=== PATIENT | male | born 1975 | race Caucasian/White ===

== ENCOUNTER 2018-11-05 07:27 | Emergency (ER) | payer SELFPAY ==
[2018-11-05] MEDS: Etomidate 20 MG/10 ML Vial IV (07:27)
[2018-11-05 07:28] VITALS: BP 168/120; PULSE 145; RESP 20; O2SAT 100; BMI 26.5
[2018-11-05] MEDS: Rocuronium Bromide 50 MG/5 ML Vial IV (07:28)
--- NOTE | 2018-11-05 07:31 | RAD_ITS ---
STUDY: X-RAY CHEST REASON FOR EXAM: Male, 43 years old. Patient was found unresponsive this morning. TECHNIQUE: Single AP portable view of the chest. COMPARISON: Prior comparison studies are not available for review at this time. FINDINGS: Tip of the endotracheal tube is at the aortic arch. Enteric tube is present with the distal end within the gastric fundus. The lungs are hyperexpanded. There is no obvious airspace consolidation, pleural effusions or pneumothorax. There is no demonstrated pleural abnormality. Normal size heart. Normal mediastinum and angle. There is prominence of the pulmonary hilar arteries without peripheral pulmonary vascular congestion. There is atherosclerotic calcification of the aortic arch with tortuosity. Normal visualized thoracic spine. Normal visualized ribs, clavicles, and shoulders. There is no demonstrated abnormality of the visualized soft tissue structures of the upper abdomen. RAD/Chest 1 View (Portable) IMPRESSION: No radiographic evidence of acute cardiopulmonary disease. Electronically Signed: Jana Kim MD at 8:41 EST , Service support ,
--- NOTE | 2018-11-05 07:31 | EKG12_ITS ---
Test Reason : UNRESPONSIVE Blood Pressure : / mmHG Vent. Rate : 132 BPM Atrial Rate : 576 BPM P-R Int : 000 ms QRS Dur : 092 ms QT Int : 400 ms P-R-T Axes : 076 063 083 degrees QTc Int : [address] & T wave abnormality, consider inferior ischemia ST & T wave abnormality, consider anterolateral ischemia Abnormal ECG Confirmed by JUAN MIGUEL PAUL, UZMA ([id number]), pictures editor JOSEP HOLDEN ([id number]) on 11/07/2018 8:48:35 AM Referred By: MAX Confirmed By:UZMA BULLARD MD
--- NOTE | 2018-11-05 07:31 | CT_ITS ---
STUDY: CT BRAIN WITHOUT CONTRAST REASON FOR EXAM: Male, 43 years old. Unresponsive patient RADIATION DOSAGE (If Supplied By Facility): CTDIvol = ( 44.99 ) mGy, DLP = ( 779.24 ) mGycm TECHNIQUE: Transaxial CT imaging of the brain was performed without administration of intravenous contrast material. Multiplanar reformations are submitted for interpretation. Individualized dose optimization techniques were used for this CT. COMPARISON: None. FINDINGS: Normal soft tissue structures. Normal calvarium. There is diffuse cerebral edema with effacement of cortical sulci. There is a severe right to left transfalcine there is also crowding of the basilar cisterns with displacement of the cerebellar tonsils below the foramen magnum consistent with severe transtentorial shift by approximately 11.5 mm. There is dilatation of the lateral ventricles. There is effacement of fourth ventricle. There is a large hematoma in the region of the right basal ganglia extending into the adjacent white matter measuring approximately 7.0 x 3.5 x 4.8 cm in size. There is associated vasogenic edema and intraventricular hemorrhage There are tiny areas of increased attenuation in the brainstem suggesting possible Duret hemorrhage. Normal cerebellum. There are large mucus retention cysts within the maxillary sinuses. CT/Brain/Head without Contrast IMPRESSION: 1. 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 2. Severe right to left subfalcine shift, and transtentorial shift. 3. Diffuse cerebral edema. 4. Probable Duret hemorrhages. N.B. : The above information has been verbally conveyed by Jana Kim MD to Marcus Leavitt MD, on 11/05/2018 07:58:00 (ET). Electronically Signed: Jana Kim MD at 8:05 EST , Service support ,
--- NOTE | 2018-11-05 07:33 | CT_ITS ---
STUDY: CT ABDOMEN AND PELVIS WITH CONTRAST REASON FOR EXAM: Male, 43 years old. Patient was found unresponsive after falling yesterday. RADIATION DOSAGE (If Supplied By Facility): CTDIvol = ( 13.45 ) mGy, DLP = ( 891.04 ) mGycm TECHNIQUE: Transaxial images were obtained from the dome of the diaphragm to the symphysis pubis without oral contrast. 100 ml of Isovue 300 contrast was administered. Sagittal and coronal images were reconstructed. Individualized dose optimization techniques were used for this CT. COMPARISON: None. FINDINGS: There is bilateral basilar airspace consolidation and/or atelectasis. The visualized portions of the heart are within normal limits. Normal liver. Normal gallbladder and extrahepatic biliary system. Normal spleen. Normal pancreas. Normal bilateral adrenal glands. There is mild prominence of bilateral renal collecting systems, without evidence for radiopaque ureteral calculus. The renal parenchyma has a normal appearance. Enteric tube is visible within the stomach. There is a large amount of bowel gas within the small and large bowel suggesting an ileus. There is no definite evidence for dilated bowel, ascites or pneumoperitoneum. Normal colon. The appendix is visualized and appears normal. Normal abdominal aorta. Normal inferior vena cava. Normal retroperitoneum. Knutson catheter is visible in the urinary bladder. Normal visualized prostate gland. Normal abdominal wall. Normal osseous structures. CT/Abdomen/Pelvis W IV Cont ONLY IMPRESSION: 1. Bilateral basilar airspace consolidation and/or atelectasis. 2. Probable ileus. 3. Mild dilatation of the renal collecting systems possibly reflexive without evidence for ureteral calculi. Electronically Signed: Jana Kim MD at 8:23 EST , Service support ,
--- NOTE | 2018-11-05 07:33 | CT_ITS ---
STUDY: CT CERVICAL SPINE WITHOUT CONTRAST REASON FOR EXAM: Male, 43 years old. Neck pain. Patient was found unresponsive this morning. RADIATION DOSAGE (If Supplied By Facility): CTDIvol = ( 24.94 ) mGy, DLP = ( 502.90 ) mGycm TECHNIQUE: High resolution transaxial imaging was performed without contrast material. Sagittal and coronal images were reconstructed. Individualized dose optimization techniques were used for this CT. COMPARISON: Prior comparison studies are not available for review at this time. FINDINGS: Normal craniovertebral junction. Normal anterior atlantoaxial articulation. Normal odontoid process. Normal cervical lordosis. Normal vertebral bodies and posterior osseous elements. C2-3: Normal endplates. Normal disc height and morphology. Normal central canal and intervertebral neuroforamina. C3-4: Normal endplates. Normal disc height and morphology. Normal central canal and intervertebral neuroforamina. C4-5: Normal endplates. Normal disc height and morphology. Normal central canal and intervertebral neuroforamina. C5-6: Normal endplates. Normal disc height and morphology. Normal central canal and intervertebral neuroforamina. C6-7: Normal endplates. Normal disc height and morphology. Normal central canal and intervertebral neuroforamina. C7-T1: Normal endplates. Normal disc height and morphology. Normal central canal and intervertebral neuroforamina. The patient is intubated. Enteric tube is present. Lung apices appear to be clear. Intraventricular hemorrhage is visible in the fourth ventricle. CT/Spine Cervical without Contras IMPRESSION: No CT evidence of acute compression or displaced fracture of cervical spine. Electronically Signed: Jana Kim MD at 8:11 EST , Service support ,
[2018-11-05 07:50] VITALS: RESP 16
[2018-11-05] MEDS: Diphth,Pertuss(Acell),Tet Vac 0.5 ML Vial IM (07:54)
[2018-11-05 08:01] LABS: Absolute Lymphocyte Count 0.61 X10^3/ul (0.83-4.51); Basophil# 0.03 X10^3/uL; Basophil% 0.2 % (0-1); Eosinophil# 0.05 X10^3/uL; Eosinophils% 0.3 % (0-5); Hematocrit 41.9 % (40-54); Hemoglobin 13.8 g/dl (13.0-16.5); Lymphocyte # 0.61 X10^3/ul (4.0); Lymphocyte % 3.9 % (19-41); Mean Corp Hgb Conc 32.9 g/gl (32-36); Mean Corpuscular Hgb 27.9 pg (27.0-32.0); Mean Corpuscular Volume 84.6 fL (80-94); Mean Platelet Vol. 10.7 fl (6.2-12.0); Monocyte# 0.79 X10^3/uL; Monocyte% 5.1 % (0-10); Neutrophil # 14.04 X10^3/uL (2.7-7.7); Neutrophil % 90.3 % (47-70); Platelet Count 174 K/mm3 (150-450); RBC Distribution Width SD 39.8 fl (35.1-43.9); Red Blood Count 4.95 M/mm3 (4.6-6.2); White Blood Count 15.6 K/mm3 (4.4-11.0)
[2018-11-05 08:03] LABS: POSITIVE COUNT NO; POSITIVE DIFFERENTIAL NO; POSITIVE MORPHOLOGY NO
--- NOTE | 2018-11-05 08:04 | ED.VISSUMM ---
- ER Visit Summary Date of Service: 11/05/18 Chief Complaint: Unresponsive History of Present Illness: The patient is a 43 M who was brought by EMS unresponsive. He was being bagged. Initial informant family. He apparently fell last evening at 2230. Per paramedics the description was as if someone dropped a brick. Girlfriend arrived later and I was informed at 0100 that he was doing well. No other history is available. Per paramedics she is on 2 antihypertensive medication. Apparently there is history of potential drug use. Physical Examination: Initial blood pressure 179 129 heart rate 159 patient is being bagged. Pupils are 4-5 mm nonreactive. There is no hemotympanum. There is evidence of facial trauma. Trach is midline. He was placed in a c-collar. Breath sounds noted with assisted ventilation. Heart is rapid and regular. Abdomen reveals contusion to the left side. Pelvis is apparently stable. He withdraws to noxious stimuli. GCS is 6. Test Results: CT of the head reveals a large right basal ganglion hemorrhage with blood into the ventricle significant shift and there is evidence of a tentorial subdural as well. CT of the neck reveals no obvious abnormally per my interpretation. Have not received formal read by radiologist. CT of the abdomen and pelvis with IV contrast reveals no hepatic injury splenic injury or obvious renal injury. There is no fluid in the pelvis and there was no evidence of a pneumoperitoneum. Knutson is noted. Blood work is pending. Portable chest x-ray reveals endotracheal tube to be 2 cm above the renee. OG is in proper position. Lung parenchyma looks normal. Cardiac silhouette is normal. There is no widening of the mediastinum. White count is elevated 15.6 with 90 segs which represents demargination. Electronic panel pending. Coags normal. Tox is positive for amphetamines, methamphetamines and cannabinoids. Ethanol is pending. Emergency Department Course and Treatment: Rapid examination, intubation by RSI. He was initially given 20 mg etomidate. Unable to open mouth adequately. He received 50 mg of rocuronium. He was intubated with a 7.5 endotracheal tube. The arytenoids were visualized. Cords are very anterior. Appropriate color change on capnometer. Breath sounds noted bilaterally. OG was placed by me in Knutson per nursing staff. Because of the large intracranial bleed with shift he received 1 g/kg of mannitol. Cardene drip was ordered however this was held because his pressure has improved. Did speak with neurosurgeon at [facility] agrees with not starting Cardene at this time. Case was discussed with the ER physician Dr. Bright who has accepted patient. Treatment Plan: Transferred to [facility]. Case discussed with the emergency physician and neurosurgeon at [facility]. Disposition: Critical care transport by helicopter to [facility] emergency department Impression: 1. Large right basal ganglion intracranial hemorrhage with shift 2. Tentorial subdural 3. Hypertensive emergency 4. Critical care time 32 minutes 5. Oral intubation by RSI technique by me 6. Oral gastric tube placement by me 7. Knutson placed per nursing staff This note was generated with [employer] dictation software. It may contain incorrect words, spelling, and punctuation that were not noted in review of the chart prior to signing ED Disposition - Plan for ED Patient: Chief Complaint: Unresponsive Referrals: Zev Vasquez MD [Primary Care Provider] -
[2018-11-05 08:06] VITALS: BP 127/77; PULSE 123; RESP 16; O2SAT 100
[2018-11-05 08:07] VITALS: O2SAT 100
[2018-11-05 08:08] LABS: International Normalized Ratio 1.1; Prothrombin Time (Protime)PT. 14.5 SECONDS (11.7-14.9)
[2018-11-05 08:09] LABS: Partial Thromboplast Time 28.4 Seconds (24.1-36.2)
[2018-11-05 08:12] LABS: Amphetamine Urine VISTA POSITIVE (<1000 ng/mL); Barbiturate Urine VISTA NEGATIVE (< 200 ng/mL); Benzodiazepine Urine VISTA NEGATIVE (< 200 ng/mL); Cocaine Urine VISTA NEGATIVE (< 300 ng/mL); Ecstacy Urine VISTA POSITIVE (< 500 ng/mL); Methadone Urine VISTA NEGATIVE (< 300 ng/mL); PCP Urine VISTA NEGATIVE (< 25 ng/mL); THC Urine VISTA POSITIVE (< 50 ng/mL); Vista UDS pH Range 5
--- NOTE | 2018-11-05 08:19 | CPS ---
SETTING CHANGES POST ABG RATE ICREASED TO 18 FIO2 DECREASED TO 40%
[2018-11-05 08:20] LABS: ALB/GLOB Ratio 1.1 RATIO (0.9-2.4); AST(SGOT) 29 U/L (15-37); Alanine Aminotransfer ALT/SGPT 23 U/L (16-61); Albumin, Serum 3.4 g/dL (3.2-5.0); Alkaline Phosphatase 95 U/L (45-117); Anion Gap 10 (5-15); BUN 23 mg/dL (7-18); BUN/Creat Ratio 18.9 RATIO (10-20); Calcium,Total 7.8 mg/dL (8.5-10.1); Chloride 101 mmol/L (98-107); Creatinine, Serum 1.22 mg/dL (0.70-1.30); EST Glomerular Filtration Rate 69 mL/min (>60); Est Glom Filt Rate - Afr Amer 84 mL/min (>60); Estimated Creatinine Clearance 81.44 ml/min; Glucose 149 mg/dL (74-106); Protein, Total 6.4 g/dL (6.4-8.2); Sodium Level 137 mmol/L (136-145)
[2018-11-05 08:21] LABS: Allen Test POS; Base Excess -3 mmol/L (-2 to +2); Bicarbonate 24.1 mmol/L (22-26); Blood Gas Specimen Type ART; FI02 50; Mode A-C; O2 Delivery Device Vent; PEEP 5; PO2 185 mmHG (75-100); RR 16; SITE L Radial; SO2 99 % (95-99); Time Given 814; Total Carbon Dioxide 26 mmol/L; Vt 500; pCO2 54.8 mmHg (35-45); pH 7.25 (7.35-7.45)
[2018-11-05 08:22] VITALS: TEMP 36.8
[2018-11-05 08:28] VITALS: BP 137/82
--- NOTE | 2018-11-05 08:31 | NURSING ---
[employer] NURSE WAS GIVEN REPORT BY DR. SANTANA, SHE VERBALIZED THAT SHE WOULD GIVE REPORT TO [facility] ER STAFF UPON ARRIVAL
[2018-11-05 08:46] LABS: Lactic Acid 2.1 mmol/L (0.4-2.0)
--- NOTE | 2018-11-05 09:42 | NURSING ---
SPOKE WITH HANNA BHATIA, ER NURSE AT [facility] , GAVE REPORT
[2018-11-05 11:56] LABS: Reflex Lactate? Y
== END 2018-11-05 08:41 | disposition short-term general hospital (02) ==
PROVIDERS: Emergency Provider Emergency Medicine; Family Provider Family Medicine; PCP Family Medicine
DX: I62.9 Nontraumatic intracranial hemorrhage, unspecified (principal); I16.1 Hypertensive emergency; Z72.0 Tobacco use
CPT/HCPCS: 31500; 36600; 51702; 70450; 71045; 72125; 74177; 80053; 80307; 80320; 82803; 83605; 84484; 85025; 85610; 85730; 90715; 93005; 94002; 96365; 99251; 99285; J7030; Q9967; A4216; G0463; G0480